=== PATIENT | female | born 1995 | race Caucasian/White ===

== ENCOUNTER 2024-02-28 10:36 | Emergency (ER) | payer OTHER ==
[~2024-02-28] VITALS: Ht 165.1 cm; Wt 47.0 kg
[~2024-02-28 10:36] MED LIST: ACYCLOVIR200 MG PO; CEPHALEXIN500 M1 PO; IBU600 MG PO
[2024-02-28] MEDS ORDERED: VENTOLIN HFA18 GM (12:29)
[2024-02-28] MEDS ORDERED: FLUTICASONE-SAL12 G2 (12:30)
[2024-02-28 14:24] VITALS: BP 108/63
== END 2024-02-28 14:24 | disposition home or self-care (01) ==
LOC: ED 10:36
DX: S91.312A Laceration without foreign body, left foot, initial encounter (principal); W45.8XXA Other foreign body or object entering through skin, initial encounter; Z91.048 Other nonmedicinal substance allergy status; Z79.899 Other long term (current) drug therapy
CPT/HCPCS: 12002; 73630; 99283